=== PATIENT | female | born 1960 | race Caucasian/White ===

== ENCOUNTER → 2024-08-03 08:45 | Outpatient (REF) | payer MEDICARE, SELFPAY | LOC: HWWDC 08:45 | PROVIDERS: ATTENDING PHYSICIAN Nurse Practitioner Adult Health; FAMILY PHYSICIAN Family Medicine | DX: Z12.31 Encounter for screening mammogram for malignant neoplasm of breast (principal) | CPT/HCPCS: 77063; 77067 ==

== ENCOUNTER → 2025-08-05 09:36 | Outpatient (REF) | payer MEDICARE, SELFPAY | LOC: HWRAD 09:36 | PROVIDERS: ATTENDING PHYSICIAN Internal Medicine Rheumatology; FAMILY PHYSICIAN Family Medicine; REFERRING PHYSICIAN Nurse Practitioner Adult Health | DX: M81.0 Age-related osteoporosis without current pathological fracture (principal) | CPT/HCPCS: 77063; 77067; 77080 ==